=== PATIENT | male | born 1995 | race Caucasian/White ===

== ENCOUNTER 2022-06-06 10:48 | Emergency (ER) | payer MEDICAID ==
[~2022-06-06] VITALS: Ht 177.8 cm; Wt 92.3 kg
[2022-06-06] MEDS ORDERED: NAPR-1197 PO (10:50)
[2022-06-06] MEDS ORDERED: IBUP-1492 PO (11:57)
[2022-06-06] MEDS ORDERED: CEPH-558 PO (11:57)
[2022-06-06 12:10] VITALS: BP 132/73
== END 2022-06-06 12:31 | disposition home or self-care (01) ==
LOC: EMS 10:51
DX: L60.0 Ingrowing nail (principal); F17.210 Nicotine dependence, cigarettes, uncomplicated; Z98.890 Other specified postprocedural states; Z90.49 Acquired absence of other specified parts of digestive tract
CPT/HCPCS: 99283; Z7502